=== PATIENT | female | born 1990 | race Caucasian/White ===

== ENCOUNTER → 2018-09-24 12:45 | Outpatient (CLI) | payer OTHER, SELFPAY ==
[2018-09-23 16:30] VITALS: BMI 24.7
[2018-09-24 17:05] LABS: Chlamydia Trachomatis by PCR Negative (Negative); Neisserai gonorrhoeae by PCR Negative (Negative); Probe Check PASS; Sample Adequacy Control PASS; Specimen Processing Control PASS
== END ==
PROVIDERS: Referring Provider Obstetrics & Gynecology; Visit Provider Obstetrics & Gynecology
DX: Z34.90 Encounter for supervision of normal pregnancy, unspecified, unspecified trimester (principal)
CPT/HCPCS: 87086; 87491; 87591

== ENCOUNTER → 2018-09-30 18:00 | Outpatient (CLI) | payer OTHER, SELFPAY ==
[2018-09-30 11:32] VITALS: BMI 24.7
== END ==
PROVIDERS: Visit Provider Nurse Practitioner Women's Health
DX: N89.8 Other specified noninflammatory disorders of vagina (principal)
CPT/HCPCS: 87070; 87205

== ENCOUNTER → 2018-11-16 13:53 | Outpatient (CLI) | payer OTHER, SELFPAY ==
[2018-11-16 13:45] VITALS: BMI 24.7
[2018-11-16 14:55] LABS: Absolute Lymphocyte Count 1.75 X10^3/ul (0.83-4.51); Absolute Neutrophil Count 7.1 X10^3/uL (2.0-7.7); Basophil# 0.02 X10^3/uL; Basophil% 0.2 % (0-1); Eosinophil# 0.05 X10^3/uL; Eosinophils% 0.5 % (0-5); Hematocrit 37.8 % (37-47); Hemoglobin 13.1 g/dl (12.0-15.0); Lymphocyte # 1.75 X10^3/ul (4.0); Lymphocyte % 18.1 % (19-41); Mean Corp Hgb Conc 34.7 g/gl (32-36); Mean Corpuscular Volume 98.2 fL (81-99); Mean Platelet Vol. 11.3 fl (6.2-12.0); Monocyte# 0.78 X10^3/uL; Monocyte% 8.1 % (0-10); Neutrophil # 7.05 X10^3/uL (2.7-7.7); Neutrophil % 72.8 % (47-70); Platelet Count 252 K/mm3 (150-450); RBC Distribution Width CV 11.7 % (11.6-14.6); RBC Distribution Width SD 40.8 fl (35.1-43.9); Red Blood Count 3.85 M/mm3 (4.2-5.4); White Blood Count 9.7 K/mm3 (4.4-11.0)
[2018-11-16 15:01] LABS: POSITIVE COUNT NO; POSITIVE DIFFERENTIAL NO; POSITIVE MORPHOLOGY NO
[2018-11-16 15:53] LABS: HIV - WCH Non-Reactive (Nonreactive); Rubella IgG 291.7 IU/mL
[2018-11-17 12:23] LABS: HEPATITIS B SURFACE AG Negative (Negative)
[2018-11-19 03:11] LABS: Rapid Plasmin Reagin (RPR) NONREACTIVE (NONREACTIVE)
== END ==
PROVIDERS: Obstetrics & Gynecology; Referring Provider Nurse Practitioner Women's Health; Visit Provider Nurse Practitioner Women's Health
DX: Z34.92 Encounter for supervision of normal pregnancy, unspecified, second trimester (principal)
CPT/HCPCS: 36415; 85025; 86592; 86703; 86762; 86850; 86900; 87340

== ENCOUNTER → 2018-11-18 13:55 | Outpatient (CLI) | payer OTHER, SELFPAY ==
[2018-11-16 13:26] VITALS: BMI 24.6
[2018-11-16 13:45] VITALS: BMI 24.7
--- NOTE | 2018-11-18 13:58 | US_ITS ---
STUDY: SECOND AND THIRD TRIMESTER OBSTETRICAL ULTRASOUND - LIMITED REASON FOR EXAM: Female, 28 years old. Bleeding. LMP: July 30, 2018. PRIOR ULTRASOUND: None. TECHNIQUE: Transabdominal and Transvaginal TECHNICAL QUALITY: Adequate. FINDINGS: There is a single intrauterine fetus. The fetus is in a cephalic presentation. There is demonstrated cardiac activity with a heart rate of 147 bpm. There is a normal amniotic fluid volume. The largest amniotic fluid pocket measures 4.9 cm x 6.9 cm. The amniotic fluid index (YUDELKA) is within normal limits. The placenta is posterior and low lying but not previa in location. The tip of the placenta is 1.8 cm away from the cervical os. There are Grade 0 placental changes. The cervix measures 2.6 cm in length. BIOMETRY: BPD: 3.59 cm: 17 weeks, 1 days HC: 13.12 cm: 16 weeks, 6 days AC: 10.78 cm: 16 weeks, 5 days FL: 2.11 cm: 16 weeks, 3 days Age by LMP: 15 weeks, 6 days. MARGAUX by LMP: May 06, 2019. age by current US: 16 weeks, 6 days. MARGAUX by current US: April 29, 2019. Estimated weight: 160 grams, +/- 23 grams, 85 percentile. Gender: Indeterminant US/OB Limited With Biometrics IMPRESSION: Single live intrauterine gestation with a mean gestational age of 16 weeks and 6 days. Low-lying posterior placenta. Electronically Signed: Kennedy Oconnor, at 14:46 EST , Service support ,
== END ==
PROVIDERS: Referring Provider Nurse Practitioner Women's Health; Visit Provider Nurse Practitioner Women's Health
DX: O20.9 Hemorrhage in early pregnancy, unspecified (principal); Z3A.00 Weeks of gestation of pregnancy not specified
CPT/HCPCS: 76816

== ENCOUNTER → 2018-12-30 | Outpatient (CLI) | payer OTHER, SELFPAY ==
[2018-12-17 15:53] VITALS: BMI 25.3
--- NOTE | 2018-12-30 13:33 | US_ITS ---
STUDY: SECOND AND THIRD TRIMESTER OBSTETRICAL ULTRASOUND REASON FOR EXAM: Female, 28 years old. Routine survey. LMP: July 30, 2018. TECHNIQUE: Transabdominal TECHNICAL QUALITY: Adequate. PRIOR ULTRASOUND: Comparison is made with prior study dated November 18, 2018. FINDINGS: There is a single intrauterine fetus. The fetus is in a variable presentation. There is demonstrated cardiac activity with a heart rate of 135 bpm. There is a normal amniotic fluid volume. The largest amniotic fluid pocket measures 3.9 cm x 3 cm. The amniotic fluid index (YUDELKA) is normal. The placenta is posterior in location and is not low lying. There are Grade 0 placental changes. The cervix measures 3.3 cm in length. The bilateral adnexal regions are normal. BIOMETRY: BPD: 5.51 cm: 22 weeks, 6 days HC: 20.86 on the: 23 weeks, 0 days AC: 19.16 cm: 24 weeks, 0 days FL: 4.03 cm: 23 weeks, 1 days CI: 78% FL/BPD: 73% FL/HC: FL/AC: 21% HC/AC: 1.09 age by current US: 23 weeks, 2 days. MARGAUX by current US: April 26, 2019. Estimated weight: 593 grams, +/- 87 grams, 98 %. age by prior US: 22 weeks, 6 days. MARGAUX by prior US: April 29, 2019. Age by LMP: 21 weeks, 6 days. MARGAUX by LMP: May 06, 2019. ANATOMY: Gender: Male Cranium: Normal lateral ventricles. Normal choroid plexus. Normal cerebellum. Normal cisterna magna. Normal face, nose and lips. Chest: Normal 4-chamber heart. Abdomen/Pelvis: Normal diaphragm. Normal stomach. Normal abdominal wall. Normal cord insertion. Normal 3 vessel cord. Normal kidneys. Normal bladder. Spine: Normal cervical spine. Normal thoracic spine. Normal lumbar spine. Normal sacrum. Extremities: Normal bilateral upper extremities. Normal bilateral lower extremities. US/OB Anatomy Scan IMPRESSION: Single live intrauterine gestation with a mean gestational age of 22 weeks and 6 days. The measurements obtained today fall within normal expected range. Electronically Signed: Kennedy Oconnor, at 15:04 EDT , Service support ,
== END | disposition home or self-care (01) ==
LOC: OPUS 13:32 → PAVLAB 14:42
PROVIDERS: Referring Provider Obstetrics & Gynecology; Visit Provider Obstetrics & Gynecology
DX: Z34.90 Encounter for supervision of normal pregnancy, unspecified, unspecified trimester (principal)
CPT/HCPCS: 36415; 76805

== ENCOUNTER → 2019-02-07 16:10 | Outpatient (CLI) | payer OTHER, SELFPAY ==
[2019-02-07 15:15] VITALS: BMI 25.3
[2019-02-07 17:28] LABS: Absolute Lymphocyte Count 2.19 X10^3/ul (0.83-4.51); Absolute Neutrophil Count 7.1 X10^3/uL (2.0-7.7); Basophil# 0.01 X10^3/uL; Basophil% 0.1 % (0-1); Eosinophil# 0.11 X10^3/uL; Hematocrit 35.1 % (37-47); Hemoglobin 12.1 g/dl (12.0-15.0); Lymphocyte # 2.19 X10^3/ul (4.0); Lymphocyte % 20.7 % (19-41); Mean Corp Hgb Conc 34.5 g/gl (32-36); Mean Corpuscular Hgb 34.1 pg (27.0-32.0); Mean Corpuscular Volume 98.9 fL (81-99); Mean Platelet Vol. 10.9 fl (6.2-12.0); Monocyte# 1.17 X10^3/uL; Neutrophil # 7.08 X10^3/uL (2.7-7.7); Neutrophil % 66.8 % (47-70); Platelet Count 258 K/mm3 (150-450); RBC Distribution Width CV 12.7 % (11.6-14.6); RBC Distribution Width SD 46.3 fl (35.1-43.9); Red Blood Count 3.55 M/mm3 (4.2-5.4); White Blood Count 10.6 K/mm3 (4.4-11.0)
[2019-02-07 17:31] LABS: POSITIVE COUNT NO; POSITIVE DIFFERENTIAL NO; POSITIVE MORPHOLOGY NO
[2019-02-07 17:56] LABS: Glucose Challenge Gest 1H 50g 103 mg/dL (70-140)
== END ==
PROVIDERS: Referring Provider Obstetrics & Gynecology; Visit Provider Obstetrics & Gynecology
DX: Z34.92 Encounter for supervision of normal pregnancy, unspecified, second trimester (principal)
CPT/HCPCS: 36415; 82950; 85025

== ENCOUNTER → 2019-04-08 | Outpatient (CLI) | payer OTHER, SELFPAY ==
[2019-04-08 16:03] VITALS: BMI 25.3
== END | disposition home or self-care (01) ==
LOC: LABSPEC 17:18
PROVIDERS: Visit Provider Obstetrics & Gynecology
DX: Z34.93 Encounter for supervision of normal pregnancy, unspecified, third trimester (principal)
CPT/HCPCS: 87081

== ENCOUNTER 2019-05-02 10:50 | Inpatient (IN) | payer OTHER, SELFPAY ==
[2019-04-29 16:07] VITALS: BMI 26.4
[2019-05-02 09:20] VITALS: BMI 25.9
[2019-05-02 11:23] LABS: Absolute Lymphocyte Count 1.86 X10^3/uL (0.83-4.51); Absolute Neutrophil Count 12.4 X10^3/uL (2.0-7.7); Basophil# 0.04 X10^3/uL; Basophil% 0.3 % (0-1); Eosinophil# 0.02 X10^3/uL; Eosinophils% 0.1 % (0-5); Hematocrit 40.5 % (37-47); Lymphocyte # 1.86 X10^3/ul (4.0); Mean Corp Hgb Conc 34.6 g/dL (32-36); Mean Corpuscular Hgb 34.9 pg (27.0-32.0); Mean Platelet Vol. 11.1 fl (6.2-12.0); Monocyte# 1.13 X10^3/uL; Monocyte% 7.3 % (0-10); NRBC Flagged by Analyzer 0 % (0-5); Neutrophil # 12.37 X10^3/uL (2.7-7.7); Neutrophil % 79.7 % (47-70); Platelet Count 238 K/mm3 (150-450); RBC Distribution Width CV 12.1 % (11.6-14.6); RBC Distribution Width SD 44.6 fl (35.1-43.9); Red Blood Count 4.01 M/mm3 (4.2-5.4); White Blood Count 15.5 K/mm3 (4.4-11.0)
[2019-05-02] MEDS: Lactated Ringers 1,000 ML 999 ML IV (11:29)
[2019-05-02] MEDS: Lactated Ringers 1,000 ML 50 ML IV ×2 (12:06→13:24)
[2019-05-02] MEDS: Ondansetron 4 MG/2 ML Vial IV (13:13)
[2019-05-02] MEDS: fentaNYL-bupivacaine (epidural) 100 ML BAG EPIDURAL (13:20)
--- NOTE | 2019-05-02 17:45 | PCM.HP.OB ---
- Problem List (1) Active labor at term Status: Acute (2) IUD contraception Status: Acute Comment: plan liletta 6 weeks . No prior auth needed (3) Status: Acute Qualifiers: Comment: Declined carrier screen and ntd screen. Low risk Panorama. nl anatomy (4) Supervision of normal Status: Acute Qualifiers: Comment: PRR MARGAUX 05/06/19 boy boyfriend Erica History Date of Admission: 05/02/19 Final MARGAUX: 05/06/19 Gestational age: 39 Weeks and 3 Days History of this : This is a 29 year-old, at 39 weeks gestational age presents IAL4 cm dilated, doing well co some vb no lof good fm. Allergies No Known Allergies Allergy (Verified 05/02/19 09:23) Home Medications: Home Medications vitamin#30 30 mg iron-10 mg iron-folic acid 1 mg-omg3 capsule cap PO cap 12/17/18 Smoking Status: Former smoker Alcohol: None Number of Fetus(es): 1 Heart Tracin moderate variability reactive no decelerations category I tracing Dumb Hundred: regular History Past Pregnancies: Past Pregnancies Delivery Date Name GA/Weeks Outcome Route Weight Gender Labor Length Anesthesia Delivery Location Provider FOB Labs: Mom's Labs & Results 05/02/19 05/02/19 11:12 11:12 WBC 15.5 H RBC 4.01 L Hgb 14.0 Hct 40.5 MCV 101.0 H MCH 34.9 H MCHC 34.6 RDW Std Deviation 44.6 H RDW Coeff of Anny 12.1 Plt Count 238 MPV 11.1 Immature Gran % (Auto) 0.600 Neut % (Auto) 79.7 H Lymph % (Auto) 12.0 L [place] % (Auto) 7.3 Eos % (Auto) 0.1 Baso % (Auto) 0.3 Absolute Neuts (auto) 12.4 H Absolute Lymphs (auto) 1.86 Nucleated RBC % 0 Blood Type O POSITIVE Antibody Screen NEGATIVE Course Did the patient receive Yes care? Labs Blood Type: O RH: POSITIVE RPR/VDRL/Syphilis Nonreactive Rubella status Immune HbSAg Negative Date Done: 11/16/18 Chlamydia Negative Gonorrhea Negative HIV/AIDS Non-Reactive Group B Strep: Negative Current Obstetrical History Gestational Diabetes No Incompetent Cervix No Infertility No IUGR No Macrosomia No Hypertension/Pre-eclampsia No Placenta Previa/Abruption No PTL/PROM No Uterine anomaly No Oligohydramnios No Polyhydramnios No Multiple gestation No Past Medical History Asthma No Diabetes No Hypertension No Heart disease No Mitral valve prolapse No Neurologic/Seizure disorder/ No Migraines Kidney disease No Liver disease No Varicosities No Clotting disorders/Hx of DVT No Thyroid Dysfunction No Other medical diseases No Psychiatric disorders No Major trauma No Abnormal PAP smear No Sleep apnea No Mammogram in the last 2 years No Social History Marital Status: SINGLE Alleged father erica Smoking Status Former smoker How long have you used denies substances (years)? Expected Delivery Method: Spontaneous Vaginal Review of Systems Constitutional: Denies: Fever, Malaise Eyes: Denies: Blurred vision, Vision Change HEENT: Denies: Head Aches, Visual Changes Cardiovascular: Denies: Chest Pain, Palpitations Respiratory: Denies: Cough, Shortness of Breath, Wheezing Gastrointestinal: Denies: Abdominal Pain, Diarrhea, Nausea, Vomiting Genitourinary: Denies: Dysuria, Hematuria Musculoskeletal: Denies: Joint Pain, Muscle pain Skin: Denies: Lesions, Rash Neurological: Denies: Blurred vision, Focal weakness, Headaches Psychiatric: Denies: Anxiety, Depression Endocrine: Denies: Heat/ Cold Intolerance Hematologic/ Lymphatic: Denies: Easy Bruising, Easy Bleeding Physical Exam General: Alert, Cooperative, No apparent distress HEENT: Atraumatic, Normocephalic. Negative for: Thyromegaly, Lymphadenopathy Cardiovascular: Regular rate Lungs: Normal air movement Abdomen: Soft, Non Tender, Gravid Neurological: Deep Tendon Reflexes 2+/4 and Symmetrical, Neuro grossly intact. Negative for: Clonus ADMINISTRATION VICE PRESIDENT: Normal external genitalia. Negative for: Vulvar lesions Estimated gestational size: Appropriate for gestational size Presentation: Cephalic Assessment/Plan All Active Problems (Last Reviewed 04/29/19 @ 16:07 by Sheila Keyes) Active labor at term (Acute) IUD contraception (Acute) (Acute) Supervision of normal (Acute) Low lying placenta nos or without hemorrhage, second trimester (Resolved) 29 year-old, at 39 weeks gestational age presents IAL epidural, arom clear fluid gbs neg mac support exp management.
--- NOTE | 2019-05-02 17:47 | PCM.OPRPT ---
Problem List (1) Active labor at term Status: Acute (2) IUD contraception Status: Acute Comment: plan jonh 6 weeks . No prior auth needed (3) Status: Acute Qualifiers: Comment: Declined carrier screen and ntd screen. Low risk Panorama. nl anatomy (4) Supervision of normal Status: Acute Qualifiers: Comment: PRR MARGAUX 05/06/19 boy boyfriend Maico Vaginal Delivery Maternal Presentation: Active Labor ial 39 weeks Amniotic Fluid Description: Clear Final MARGAUX: 05/06/19 Gestational age: 39 Weeks and 3 Days Date of Procedure: 05/02/19 Pre-Operative Diagnosis: ial Post-Operative Diagnosis: same Surgery/ Procedure Performed: Spontaneous Vaginal Delivery Type of Anesthesia: Epidural, Pudendal block with 1% lidocaine Description of Procedure: Patient requested additional anesthesia with a predental block placed after prepping the vagina with Betadine and finding the bilateral ischial spines and going 1 cm medial and posterior into the sacrospinous ligament bilaterally injecting 10 cc of lidocaine in both sides for a total of 20 cc. Patient began pushing and delivered the head in the MARICRUZ presentation. The head was delivered atraumatically. The anterior and posterior shoulders delivered without complication followed by the rest of the infant and the was placed on the maternal abdomen. Delayed cord clamping was employed for approximately 60 seconds. Cord was clamped and cut and gentle traction was applied to the cord and the placenta delivered spontaneously immediately following it was noted to be intact with three-vessel cord. The perineum and vagina were inspected and noted to have a first-degree perineal laceration that was repaired in the usual fashion with 3-0 Vicryl repeat. EBL was 300 cc. Patient and tolerated delivery well. Presentation: MARICRUZ Placental Delivery Description: Spontaneous Placenta Disposition: [facility] Cord Vessel Description: 3 Vessels Cord Entanglement: None Estimated Blood Loss: 300 Infant A gender: Male Episiotomy Description: None Laceration: Perineal Extension/lac, 1st degree Medications given after delivery: IV Pitocin Complications: None Multi Select Codes - Urinary/Genital Urinary/Genital CPT Codes: 24759 Vaginal Delivery [facility]
[2019-05-02] MEDS: Oxytocin 30 units/NS 500 ml 30 UNITS/500 ML IV.SOLN 334 UNITS IV (18:02)
[2019-05-02] MEDS: Oxytocin 30 units/NS 500 ml 30 UNITS/500 ML IV.SOLN 167 UNITS IV (18:32)
[2019-05-02] MEDS: Naproxen 250 MG Tablet 500 MG PO (18:50)
[2019-05-02] MEDS: 0.9% Saline Lock 10 ML Syringe IV (19:47)
[2019-05-02] MEDS: Acetaminophen 500 MG Tablet 1000 MG PO (23:15)
[2019-05-02 23:55] VITALS: BP 104/64; PULSE 74; RESP 18; TEMP 36.4
[2019-05-03 03:35] VITALS: BP 112/64; PULSE 75; RESP 18; TEMP 36.1
--- NOTE | 2019-05-03 07:40 | PN.OBGYN_ITS ---
Patient Problems: Active and Suspected Problems (Last Reviewed 04/29/19 @ 16:07 by Sheila Keyes) Active labor at term (Acute) Subjective: doing well no complaints pain controlled no CP SOB N V ambulating well tolerating po lochia moderate, bottle feeding going well - Physical Exam General: Alert, Oriented x3 Abdomen: Soft, Non Tender, - - FF below U Vital Signs Temp Pulse Resp BP 96.9 F L 75 18 112/64 05/03/19 03:35 05/03/19 03:35 05/03/19 03:35 05/03/19 03:35 Oxygen Delivery Method Room Air Weight: 166 lb Body Mass Index (BMI) 25.9 Intake and Output for Last 24 Hours 05/01/19 05/02/19 05/03/19 23:59 23:59 23:59 Intake Total 334 / 334 Output Total 900 / 900 Balance -566 / -566 Laboratory Tests Past 24 Hrs 05/02/19 05/02/19 11:12 11:12 WBC 15.5 H RBC 4.01 L Hgb 14.0 Hct 40.5 MCV 101.0 H MCH 34.9 H MCHC 34.6 RDW Std Deviation 44.6 H RDW Coeff of Anny 12.1 Plt Count 238 MPV 11.1 Immature Gran % (Auto) 0.600 Neut % (Auto) 79.7 H Lymph % (Auto) 12.0 L [place] % (Auto) 7.3 Eos % (Auto) 0.1 Baso % (Auto) 0.3 Absolute Neuts (auto) 12.4 H Absolute Lymphs (auto) 1.86 Nucleated RBC % 0 Blood Type O POSITIVE Antibody Screen NEGATIVE Medical Necessity - Tobacco Use Smoking Status: Former smoker Assessment/Plan All Active Problems (Last Reviewed 04/29/19 @ 16:07 by Sheila Keyes) Active labor at term (Acute) IUD contraception (Acute) (Acute) Supervision of normal (Acute) Low lying placenta nos or without hemorrhage, second trimester (Resolved) s/p PPD # 1 1. routine post delivery care 2. bottle feeding 3. rh positive 4. rubella immune
[2019-05-03] MEDS: Naproxen 250 MG Tablet 500 MG PO ×2 (07:47→17:03)
[2019-05-03 07:54] VITALS: BP 105/67; PULSE 75; RESP 16; TEMP 36.6; O2SAT 96
[2019-05-03 07:55] VITALS: O2SAT 96
[2019-05-03 14:00] VITALS: BP 106/67; PULSE 84; RESP 16; TEMP 36.4; O2SAT 98
[2019-05-03] MEDS: Acetaminophen 500 MG Tablet 1000 MG PO ×2 (14:34→23:37)
[2019-05-03 16:54] VITALS: BP 108/63; PULSE 69; RESP 16; TEMP 36.3
[2019-05-03 19:50] VITALS: BP 109/69; PULSE 65; RESP 18; TEMP 36.6
[2019-05-04 01:44] VITALS: BP 90/48; PULSE 60; RESP 16; TEMP 36.2
[2019-05-04 06:00] VITALS: BP 112/76; PULSE 69; RESP 16; TEMP 36.2; O2SAT 100
[2019-05-04] MEDS: Naproxen 250 MG Tablet 500 MG PO (07:30)
--- NOTE | 2019-05-04 07:42 | PCM.PN.OB ---
Patient Problems: Active and Suspected Problems (Last Reviewed 04/29/19 @ 16:07 by Sheila Keyes) Active labor at term (Acute) Subjective: doing well no complaints pain controlled no CP SOB N V ambulating well tolerating po lochia moderate, bottle feeding - Physical Exam General: Alert, Oriented x3 Abdomen: Soft, Non Tender, - - FF below U Vital Signs Temp Pulse Resp BP Pulse Ox 97.2 F L 69 16 112/76 100 05/04/19 06:00 05/04/19 06:00 05/04/19 06:00 05/04/19 06:00 05/04/19 06:00 Oxygen Delivery Method Room Air Weight: 166 lb Body Mass Index (BMI) 25.9 Intake and Output for Last 24 Hours 05/02/19 05/03/19 05/04/19 23:59 23:59 23:59 Intake Total 334 / 334 Output Total 900 / 900 Balance -566 / -566 Medical Necessity - Tobacco Use Smoking Status: Former smoker Assessment/Plan All Active Problems (Last Reviewed 04/29/19 @ 16:07 by Sheila Keyes) Active labor at term (Acute) IUD contraception (Acute) (Acute) Supervision of normal (Acute) Low lying placenta nos or without hemorrhage, second trimester (Resolved) s/p PPD # 2 1. routine post delivery care 2. bottle feeding 3. rh positive 4. rubella immune 5. Home today
--- NOTE | 2019-05-04 07:44 | DCINST_ITS ---
Additional Instructions: If you experience any of the following, contact your healthcare provider. * Bleeding that soaks a pad every hour for 2 hours * Fever 100.4 or higher * Unrelieved incision or abdominal pain * Swelling, redness, discharge or bleeding from your incision or episiotomy site * Your incision begins to separate * Problems urinating (including inability to urinate or burning while urinating). * Visual changes * Severe headache * Flu-like symptoms * Pain or redness in one of both of your breasts * Pain, warmth, tenderness or swelling in your legs, especially the calf area * Frequent nausea and vomiting * Symptoms of depression or anxiety If you experience any of the following, call 911 or go to the nearest Emergency Room. * Chest pain * Problems breathing * Seizure activity * Partial or complete paralysis of a body part, slurred speech, weakness or drooping of the face, or a sudden inability to walk or hold your balance Allergies/Adverse Reactions: Allergies No Known Allergies Allergy (Verified 05/02/19 09:23) Medications to take at Discharge vitamin#30 30 mg iron-10 mg iron-folic acid 1 mg-omg3 capsule cap PO cap 12/17/18 Primary Care Physician: Care Physician,No Primary [Primary Care Provider] - Test Results: Test results from this visit will be discussed in further detail at your follow- up appointment, if applicable.
--- NOTE | 2019-05-04 07:44 | PCM.DCVAG ---
Additional Instructions: If you experience any of the following, contact your healthcare provider. Bleeding that soaks a pad every hour for 2 hours Fever 100.4 or higher Unrelieved incision or abdominal pain Swelling, redness, discharge or bleeding from your incision or episiotomy site Your incision begins to separate Problems urinating (including inability to urinate or burning while urinating). Visual changes Severe headache Flu-like symptoms Pain or redness in one of both of your breasts Pain, warmth, tenderness or swelling in your legs, especially the calf area Frequent nausea and vomiting Symptoms of depression or anxiety If you experience any of the following, call 911 or go to the nearest Emergency Room. Chest pain Problems breathing Seizure activity Partial or complete paralysis of a body part, slurred speech, weakness or drooping of the face, or a sudden inability to walk or hold your balance Allergies/Adverse Reactions: Allergies No Known Allergies Allergy (Verified 05/02/19 09:23) Medications to take at Discharge vitamin#30 30 mg iron-10 mg iron-folic acid 1 mg-omg3 capsule cap PO cap 12/17/18 Primary Care Physician: Care Physician,No Primary [Primary Care Provider] - Test Results: Test results from this visit will be discussed in further detail at your follow-up appointment, if applicable.
[2019-05-04 09:41] VITALS: BP 112/76; PULSE 67; RESP 16; TEMP 36.2; O2SAT 98
== END 2019-05-04 09:55 | disposition home or self-care (01) | DRG 806 ==
LOC: OBT 11:02 → WP 11:02
PROVIDERS: Admitting Provider Obstetrics & Gynecology; Referring Provider Obstetrics & Gynecology; Visit Provider Obstetrics & Gynecology
DX: O70.0 First degree perineal laceration during delivery (principal); O44.42 Low lying placenta NOS or without hemorrhage, second trimester; Z37.0 Single live birth; Z3A.39 39 weeks gestation of pregnancy; Z87.891 Personal history of nicotine dependence
CPT/HCPCS: 59025; 59050; 85025; 86850; 86900; 99218; J7120; A4216; G0378; J2405

== ENCOUNTER → 2019-06-20 17:18 | Outpatient (CLI) | payer OTHER, SELFPAY ==
[2019-06-20 11:07] VITALS: BMI 25.9
[2019-06-28 15:48] LABS: HPV Reflexed? NOT INDICATED
== END ==
PROVIDERS: Referring Provider Obstetrics & Gynecology; Visit Provider Obstetrics & Gynecology
DX: Z12.4 Encounter for screening for malignant neoplasm of cervix (principal)
CPT/HCPCS: 88175; G0145